=== PATIENT | female | born 1980 | race Caucasian/White ===

== ENCOUNTER → 2017-12-01 | Day surgery (SDC) | payer OTHER ==
[~2017-12-01] VITALS: Ht 167.6 cm; Wt 117.9 kg
--- NOTE | 2017-12-06 12:13 | Operative Report ---
See Addendum Operative/Inv Procedure Report Surgery Date: 12/01/17 Name of Procedure: D&C hysteroscopy removal of skin tag from left vulva Pre-Operative Diagnosis: Menorrhagia skin tag Post-Operative Diagnosis: Same Estimated Blood Loss: less than 50ml Surgeon/Harnessmaker: Megha Contreras MD Anesthesia: moderate sedation Operative/Procedure Note Note: Procedure note patient was taken the operating room placed on position after adequate induction anesthesia patient placed in dorsolithotomy position the vagina from dorsal fashion bladder was catheterized examination under anesthesia performed patient tolerated that well at this point CO2 tenaculum was on the Intralipid cervix gentle downward traction cervix was dilated 20 Hegar to allow for the insertion of the hysteroscope under direct visualization on his scope was placed using gastroscope was moved sharp curettage endometrial lining performed sharp curettage and cervical lining performed with [place] correct patient tolerated that well all counts were correct at the end the case patient was returned spine position awakened from anesthesia and transported recovery room awake Findings: 2 cm fleshy skin tag on left vulva avascular Uterus is slightly enlarged heavy uterine lining no adnexal masses otherwise normal anatomy
== END ==
LOC: STS 02:05
DX: N92.0 Excessive and frequent menstruation with regular cycle (principal); N85.00 Endometrial hyperplasia, unspecified; D28.0 Benign neoplasm of vulva
CPT/HCPCS: 81025; 88305; J2250